=== PATIENT | female | born 1995 | race Caucasian/White ===

== ENCOUNTER 2019-12-25 00:06 | Inpatient (IN) | payer MEDICAID, SELFPAY ==
[~2019-12-25] VITALS: Ht 162.6 cm; Wt 85.3 kg
[2019-12-25] MEDS ORDERED: LR 1,000 ML IV SCH ×3 (03:09→08:04)
[2019-12-25] MEDS ORDERED: CEFAZOLIN 2 GM IVPB PREMIX 50 ML IV ONE (03:15)
[2019-12-25 06:58] VITALS: BP_SYST 106
[2019-12-25] MEDS ORDERED: OXYTOCIN/0.9 % SODIUM CHLORIDE 1,000 ML IV ONE (07:18)
[2019-12-25] MEDS ORDERED: MEASLES,MUMPS&RUBELLA VACC/PF 12500 UNIT/0.5 ML VIAL SUBQ PRN (07:30)
[2019-12-25] MEDS ORDERED: ANUSOL 1 EA SUPP.RECT (PREPARATION H) RC PRN (07:30)
[2019-12-25] MEDS ORDERED: DOCUSATE SODIUM 100 MG CAPSULE PO PRN (07:30)
[2019-12-25] MEDS ORDERED: BISACODYL 10 MG/SUPPOSITORY RC PRN (07:30)
[2019-12-25] MEDS ORDERED: LANOLIN 7 GM OINT. TP PRN (07:30)
[2019-12-25] MEDS ORDERED: SENNOSIDES/DOCUSATE SODIUM 1 TAB TABLET(SENOKOT-S) PO PRN (07:30)
[2019-12-25] MEDS ORDERED: DIPH-TET-PERTUS Vaccine 0.5 ML VIAL (ADACEL) I.M. PRN (07:30)
[2019-12-25] MEDS ORDERED: OXYCODONE/ACETAMINOPHEN 5-325 TABLET PO PRN (07:30)
[2019-12-25] MEDS ORDERED: TEMAZEPAM 15 MG CAPSULE PO PRN (07:30)
[2019-12-25] MEDS ORDERED: HYDROcodone/ACETAMIN 5-325 MG TAB (NORCO/ VICODIN) PO PRN (07:30)
[2019-12-25] MEDS ORDERED: RHO(D) IMMUNE GLOBULIN/MALTOSE 1500 UNITS/1.3 ML (WINHRO) IM PRN (07:30)
[2019-12-25 07:34] LABS: BASOPHILS % (AUTO) 0.1 % (0.0-2.0); EOSINOPHILS # (AUTO) 0.1 K/uL (0.0-0.4); EOSINOPHILS % (AUTO) 1.2 % (0.0-4.0); HEMATOCRIT 30.7 % (36-48); HEMOGLOBIN 10.2 g/dL (12.0-16.0); LYMPHOCYTES # (AUTO) 1.5 K/uL (1.0-5.5); LYMPHOCYTES % (AUTO) 22.9 % (20.5-51.5); MEAN CORPUSCULAR HEMOGLOBIN 26 pg (27-31); MEAN CORPUSCULAR HGB CONC 33 % (32-36); MEAN CORPUSCULAR VOLUME 78 fL (79.0-98.0); MONOCYTES # (AUTO) 0.5 K/uL (0.0-1.0); NEUTROPHILS # (AUTO) 4.5 K/uL (1.8-7.7); NEUTROPHILS % (AUTO) 68.8 % (40.0-70.0); PLATELET COUNT (AUTO) 227 K/uL (130-430); RED BLOOD CELL COUNT(AUTO) 3.92 MIL/uL (4.2-6.2); RED CELL DISTRIBUTION WIDTH 15.5 % (9.0-15.0); WHITE BLOOD COUNT (AUTO) 6.5 K/uL (4.8-10.8)
[2019-12-25 07:45] LABS: BILIRUBIN,URINE NEGATIVE (NEGATIVE); BLOOD, URINE NEGATIVE (NEGATIVE); CLARITY/URINE CLEAR (CLEAR); COLOR,URINE YELLOW (YELLOW); GLUCOSE,URINE NEGATIVE (NEGATIVE); KETONES,URINE NEGATIVE (NEGATIVE); LEUKOCYTE ESTERASE ,URINE NEGATIVE (NEGATIVE); NITRITE, URINE NEGATIVE (NEGATIVE); PROTEIN URINE NEGATIVE (NEGATIVE); UROBILINOGEN,URINE 0.2 (0.2-1.0)
[2019-12-25] MEDS ORDERED: MORPHINE SULFATE 10MG/10ML PF AMP ONE ×2 (07:59→09:15)
[2019-12-25] MEDS ORDERED: MORPHINE SULFATE 10MG/10ML PF AMP SP SCH (08:15)
[2019-12-25] MEDS ORDERED: IBUPROFEN 600 MG TABLET PO ONE (08:15)
[2019-12-25] MEDS ORDERED: MEPERIDINE HCL/PF 25 MG/ML DISP.SYRIN IVP PRN (08:15)
[2019-12-25] MEDS ORDERED: HYDROmorphone 1 MG INJ. 1 MG/ML AMPUL IVP PRN (08:15)
[2019-12-25] MEDS ORDERED: ONDANSETRON HCL 4 MG/2 ML VIAL IVP PRN ×2 (08:15)
[2019-12-25] MEDS ORDERED: KETOROLAC TROMETHAMINE 60 MG/2 ML VIAL IM PRN (08:15)
[2019-12-25] MEDS ORDERED: DIPHENHYDRAMINE INJ 50 MG/ML VIAL IM PRN (08:15)
[2019-12-25 09:10] VITALS: BP_SYST 105
[2019-12-25] MEDS ORDERED: NS IRRIG SOLN 1000 ML IR ONE (09:15)
[2019-12-25] MEDS ORDERED: MORPHINE SULFATE 10 MG/ML VIAL ONE (09:15)
[2019-12-25] MEDS ORDERED: ONDANSETRON HCL 4 MG/2 ML VIAL ONE (09:15)
[2019-12-25] MEDS ORDERED: LR 1,000 ML IV.SOLN IV ONE (09:15)
[2019-12-25] MEDS ORDERED: DIPHENHYDRAMINE INJ 50 MG/ML VIAL IVP ONE (10:15)
[2019-12-25] MEDS ORDERED: DIPHENHYDRAMINE INJ 50 MG/ML VIAL ONE (10:26)
[2019-12-25] MEDS: SIMETHICONE 80 MG TAB.CHEW PO PRN ×2 (12:17→17:49)
[2019-12-25] MEDS: IBUPROFEN 600 MG TABLET PO SCH (17:49)
[2019-12-26 07:29] LABS: BASOPHILS % (AUTO) 0.2 % (0.0-2.0); EOSINOPHILS % (AUTO) 0.7 % (0.0-4.0); HEMATOCRIT 28.1 % (36-48); HEMOGLOBIN 9.1 g/dL (12.0-16.0); LYMPHOCYTES # (AUTO) 1.1 K/uL (1.0-5.5); LYMPHOCYTES % (AUTO) 16.5 % (20.5-51.5); MEAN CORPUSCULAR HEMOGLOBIN 26 pg (27-31); MEAN CORPUSCULAR HGB CONC 32 % (32-36); MEAN CORPUSCULAR VOLUME 79 fL (79.0-98.0); MONOCYTES # (AUTO) 0.4 K/uL (0.0-1.0); MONOCYTES % (AUTO) 5.2 % (1.7-9.3); NEUTROPHILS # (AUTO) 5.2 K/uL (1.8-7.7); NEUTROPHILS % (AUTO) 77.4 % (40.0-70.0); PLATELET COUNT (AUTO) 175 K/uL (130-430); RED BLOOD CELL COUNT(AUTO) 3.55 MIL/uL (4.2-6.2); RED CELL DISTRIBUTION WIDTH 15.6 % (9.0-15.0); WHITE BLOOD COUNT (AUTO) 6.7 K/uL (4.8-10.8)
[2019-12-26] MEDS: OXYCODONE/ACETAMINOPHEN 5-325 TABLET PO PRN ×4 (08:11→18:57)
[2019-12-26] MEDS: IBUPROFEN 600 MG TABLET PO SCH ×3 (12:13→17:51)
[2019-12-26] MEDS: SIMETHICONE 80 MG TAB.CHEW PO PRN (12:14)
== END 2019-12-26 19:55 | disposition home or self-care (01) | DRG 540 ==
LOC: SPU 06:00
PROVIDERS: ADMIT Obstetrics & Gynecology; ATTEND Obstetrics & Gynecology
PROC: 10D00Z1 Extraction of Products of Conception, Low, Open Approach (ICD-10-PCS; principal; 2019-12-25 07:30)
DX: O34.211 Maternal care for low transverse scar from previous cesarean delivery (principal); N73.6 Female pelvic peritoneal adhesions (postinfective); O99.89 Other specified diseases and conditions complicating pregnancy, childbirth and the puerperium; Z3A.39 39 weeks gestation of pregnancy; Z37.0 Single live birth; Z83.3 Family history of diabetes mellitus
CPT/HCPCS: 36415; 81003; 85025; 86592; 86886; 86900; 86901; 94760; J0690; J1200; J1885; J2270; J2274; J2405; J2590; J7120; U0002